=== PATIENT | male | born 1985 | race American Indian/Alaskan Native ===

== ENCOUNTER 2016-02-20 00:22 | Emergency (ER) | payer SELFPAY ==
[2016-02-20 01:00] VITALS: BP 155/63
--- NOTE | 2016-02-20 03:12 | Cat Scan Report ---
FINAL REPORT PROCEDURE: CT HEAD/BRAIN WO CON TECHNIQUE: Computerized tomography of the head was performed without contrast material. HISTORY: Head trauma. Headache. Head injury, contusion, laceration, hematoma COMPARISON: No prior studies are available for comparison. FINDINGS: Skull and scalp: Normal. Paranasal sinuses: Normal. Ventricles and subarachnoid spaces: Normal. Cerebrum: No evidence of hemorrhage, acute infarction or mass . Cerebellum and brainstem: No evidence of hemorrhage, acute infarction or mass. Vasculature: Normal. Comments: None. IMPRESSION: Overall negative CT brain without contrast with no CT evidence of intracranial hemorrhage or acute finding.
--- NOTE | 2016-02-20 08:09 | XRay Report ---
LEFT WRIST: Routine views demonstrate the carpal bones to be well mineralized with well preserved bony mineralization and interosseous joint spaces. The carpal and adjacent articular bones have normal contours. The surrounding soft tissues are unremarkable. IMPRESSION: Normal study.
[2016-02-21] MEDS ORDERED: MOTRIN PO ONE (00:12)
[2016-02-21] MEDS ORDERED: BOOSTRIX IM ONE (00:13)
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
== END 2016-02-21 01:01 | disposition home or self-care (01) ==
LOC: ED 00:22 → EEVIPCON 00:22 → ED 02-21 01:01
DX: S06.0X1A Concussion with loss of consciousness of 30 minutes or less, initial encounter (principal); S63.502A Unspecified sprain of left wrist, initial encounter; S00.91XA Abrasion of unspecified part of head, initial encounter; F17.200 Nicotine dependence, unspecified, uncomplicated; Y08.89XA Assault by other specified means, initial encounter; Y93.9 Activity, unspecified; Y92.9 Unspecified place or not applicable; Y99.9 Unspecified external cause status
CPT/HCPCS: 70450; 90471; 90715

== ENCOUNTER 2016-06-30 07:08 | Emergency (ER) | payer SELFPAY ==
[2016-06-30 07:23] VITALS: BP 127/91
[2016-06-30] MEDS ORDERED: ZITHROMAX PO ONE (08:21)
[2016-06-30] MEDS ORDERED: ROCEPHIN IM ONE (08:21)
[2016-06-30] MEDS ORDERED: XYLOCAINE 1% MPF 5 mL INFILTRATI ONE (08:21)
[2016-06-30 08:31] LABS: Bacteria,Urine 1+ /HPF (Negative); Bilirubin,Urine NEG (Negative); Blood,Urine SM (Negative); Ketones,Urine NEG (Negative); Leukocyte Esterase,Urine LG (Negative); Mucus,Urine FEW /HPF; Nitrite,Urine NEG (Negative)
[2016-06-30 08:33] LABS: WBC,Urine > 182.0 /HPF (0.0-6.0)
--- NOTE | 2016-06-30 08:42 | Emergency Department Report ---
ED General Adult HPI - General Chief complaint: Urogenital-Male Stated complaint: BLOOD IN URINE/POSS UTI Time Seen by Provider: 06/30/16 08:04 Source: patient Mode of arrival: Ambulatory Limitations: No Limitations - History of Present Illness Initial comments: 31-year-old male presents to the ED complaining about penile discharge and hematuria as well as dysuria. States noticing symptoms 2 days ago. Denies fever, flank pain. - Related Data Previous Rx's Medication Instructions Recorded Last Taken Type Ciprofloxacin HCl [Ciprofloxacin 500 mg PO Q12H #14 tab 06/30/16 Unknown Rx TAB] Allergies Allergy/AdvReac Type Severity Reaction Status Date / Time No Known Allergies Allergy Verified 06/30/16 07:24 ED Review of Systems ROS: Stated complaint: BLOOD IN URINE/POSS UTI Other details as noted in HPI Constitutional: denies: chills, fever Eyes: denies: eye pain, eye discharge, vision change ENT: denies: ear pain, throat pain Respiratory: denies: cough, shortness of breath, wheezing Cardiovascular: denies: chest pain, palpitations Endocrine: no symptoms reported Gastrointestinal: denies: abdominal pain, nausea, diarrhea Genitourinary: dysuria, discharge. denies: urgency Musculoskeletal: denies: back pain, joint swelling, arthralgia Skin: denies: rash, lesions Neurological: denies: headache, weakness, paresthesias Psychiatric: denies: anxiety, depression Hematological/Lymphatic: denies: easy bleeding, easy bruising ED Past Medical Hx - Past Medical History Previous Medical History?: No - Surgical History Past Surgical History?: No - Social History Smoking Status: Unknown if ever smoked Substance Use Type: None - Medications Home Medications: Home Medications Medication Instructions Recorded Confirmed Last Taken Type Ciprofloxacin HCl [Ciprofloxacin 500 mg PO Q12H #14 tab 06/30/16 Unknown Rx TAB] ED Physical Exam - General Limitations: No Limitations General appearance: alert, in no apparent distress - Head Head exam: Present: atraumatic, normocephalic - Eye Eye exam: Present: normal appearance - ENT ENT exam: Present: mucous membranes moist - Neck Neck exam: Present: normal inspection - Respiratory Respiratory exam: Present: normal lung sounds bilaterally. Absent: respiratory distress - Cardiovascular Cardiovascular Exam: Present: regular rate, normal rhythm. Absent: systolic murmur, diastolic murmur, rubs, gallop - GI/Abdominal GI/Abdominal exam: Present: soft, normal bowel sounds - Rectal Rectal exam: Present: deferred - exam: Present: urethral discharge. Absent: testicular tenderness, scrotal swelling, vertical testicular lie External exam: Present: normal external exam - Extremities Exam Extremities exam: Present: normal inspection - Back Exam Back exam: Present: normal inspection - Neurological Exam Neurological exam: Present: alert, oriented X3 - Psychiatric Psychiatric exam: Present: normal affect, normal mood - Skin Skin exam: Present: warm, dry, intact, normal color. Absent: rash ED Course Vital Signs 06/30/16 07:21 Temperature 98.0 F Pulse Rate 100 H Blood Pressure 127/91 O2 Sat by Pulse 96 Oximetry ED Medical Decision Making - Lab Data Vital Signs 06/30/16 07:21 Temperature 98.0 F Pulse Rate 100 H Blood Pressure 127/91 O2 Sat by Pulse 96 Oximetry Laboratory Results - last 24 hr 06/30/16 07:45 Urine Color Yellow Urine Turbidity Cloudy Urine pH 7.0 Ur Specific [place] 1.023 Urine Protein 30 mg/dl Urine Glucose (UA) Neg Urine Ketones Neg Urine Blood Sm Urine Nitrite Neg Urine Bilirubin Neg Urine Urobilinogen 2.0 Ur Leukocyte Esterase Lg Urine WBC (Auto) > 182.0 H Urine RBC (Auto) 8.0 Urine Bacteria (Auto) 1+ Urine Mucus Few - Medical Decision Making Patient is resting comfortably at this time. We'll treat for chlamydia and gonorrhea while results are pending and Cipro to go home with. Acute distress at this time. Critical care attestation.: If time is entered above; I have spent that time in minutes in the direct care of this critically ill patient, excluding procedure time. ED Disposition Clinical Impression: Penile discharge, Hematuria, Urethritis Disposition: DISCHARGED TO HOME OR SELFCARE Is pt being admited?: No Does the pt Need Aspirin: No Condition: Good Additional Instructions: Take medication as prescribed. Follow-up with urology if symptoms persist. Prescriptions: Ciprofloxacin HCl [Ciprofloxacin TAB] 500 mg PO Q12H #14 tab Referrals: PRIMARY CARE, [Primary Care Provider] - 3-5 Days Forms: STI Treatment and Prevention, Work/School Release Form(ED) Time of Disposition: 08:41
== END 2016-06-30 09:05 | disposition home or self-care (01) ==
LOC: ED 07:08
DX: N34.2 Other urethritis (principal)
CPT/HCPCS: 81001; 96372; 99283; J0696

== ENCOUNTER 2019-06-01 02:47 | Emergency (ER) | payer SELFPAY ==
--- NOTE | 2019-06-01 04:41 | Cat Scan Report ---
CT HEAD WITHOUT CONTRAST INDICATION / CLINICAL INFORMATION: Pt complains of a headache x 4 days. Pain behind his eyes.. TECHNIQUE: All CT scans at this location are performed using CT dose reduction for ALARA by means of automated e xposure control. COMPARISON: CT dated 02/20/16 FINDINGS: HEMORRHAGE: None. EXTRA-AXIAL SPACES: Normal in size and morphology for the patient's age. VENTRICULAR SYSTEM: Normal in size and morphology for the patient's age. CEREBRAL PARENCHYMA: No significant abnormality. No acute territorial infarct. MIDLINE SHIFT OR HERNIATION: None. CEREBELLUM / BRAINSTEM: No significant abnormality. ORBITS: Normal as visualized. SOFT TISSUES of HEAD: No significant abnormality. CALVARIUM: No significant abnormality. PARANASAL SINUSES / MASTOID AIR CELLS: Normal as visualized. ADDITIONAL FINDINGS: None. IMPRESSION: 1. No acute intracranial abnormality. No change. Signer Name: Carlos Saez MD Signed: 06/01/2019 4:36 AM Workstation Name: [id number]
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
[2019-06-01] MEDS ORDERED: ACETAMINOPHEN W/CODEINE 300-30 MG TAB PO ONE (06:18)
[2019-06-01] MEDS ORDERED: METOCLOPRAMIDE 10 MG TAB PO ONE (06:18)
[2019-06-01] MEDS ORDERED: diphenhydrAMINE 25 MG CAP PO ONE ×2 (06:18→06:21)
[2019-06-01] MEDS ORDERED: METOCLOPRAMIDE 10 MG TAB ONE (06:21)
[2019-06-01] MEDS ORDERED: ACETAMINOPHEN W/CODEINE 300-30 MG TAB ONE (06:21)
[2019-06-01 07:15] VITALS: BP 122/68
== END 2019-06-01 06:50 | disposition home or self-care (01) ==
LOC: ED 02:47
DX: G44.309 Post-traumatic headache, unspecified, not intractable (principal); F07.81 Postconcussional syndrome; F17.200 Nicotine dependence, unspecified, uncomplicated; Z79.2 Long term (current) use of antibiotics
CPT/HCPCS: 70450